=== PATIENT | female | born 1950 | race Caucasian/White ===

== ENCOUNTER → 2017-05-07 | Outpatient (CLI) | payer MEDICARE ==
[~2017-05-07] MED LIST: ALIG4CAP PO; COLA100C5 PO; DIFI200T PO; HYOS125TA SL; RANI15TA PO; RANI300C PO; RISATAB3 PO; TRAM50TA2 PO; TYLE325T5 PO; VANC1SUS PO; ZOMI2.5T4 PO; [UNRECOGNIZED DRUG - CODE] PO
--- NOTE | 2017-05-07 15:16 | REP ---
Clinical: Pain. Technique: AP, lateral, bilateral oblique views of the left foot. Findings: Mild/moderate age-related degenerative changes primarily involving the midfoot heterogeneous sclerosis and joint space narrowing primarily at the tarsometatarsal level appreciated. Increase sclerosis is also identified at the first metatarsophalangeal joint. No acute fracture dislocation. No obvious/significant erosive changes or soft tissue swelling. Impression: Mild to moderate degenerative changes. Signed by Gustavo Lee MD 05/07/2017 03:07 P
== END ==
LOC: M ADAMS 14:50
PROVIDERS: ATTEND Physician Assistant
DX: M19.072 Primary osteoarthritis, left ankle and foot (principal)

== ENCOUNTER → 2017-05-08 | Outpatient (REF) | payer MEDICARE | LOC: M SFHCADAM 08:13 | PROVIDERS: ATTEND Physician Assistant | DX: D64.9 Anemia, unspecified (principal); Q44.6 Cystic disease of liver; Z13.220 Encounter for screening for lipoid disorders; Q61.3 Polycystic kidney, unspecified; Z53.9 Procedure and treatment not carried out, unspecified reason ==

== ENCOUNTER → 2018-02-14 | Outpatient (CLI) | payer MEDICARE | LOC: M WHC 08:20 | DX: Z12.31 Encounter for screening mammogram for malignant neoplasm of breast (principal); Z13.820 Encounter for screening for osteoporosis; M85.851 Other specified disorders of bone density and structure, right thigh; M85.852 Other specified disorders of bone density and structure, left thigh; M85.88 Other specified disorders of bone density and structure, other site | CPT/HCPCS: 77067 ==

== ENCOUNTER → 2018-05-08 | Outpatient (REF) | payer MEDICARE ==
[2018-05-08 19:42] LABS: HEMATOCRIT 37.6 % (36.0-47.0); HEMOGLOBIN 12.6 g/dl (12.0-15.5); MEAN CORPUSCULAR HEMOGLOBIN 31.6 pg (27.0-33.0); MEAN CORPUSCULAR HGB CONC 33.5 g/dl (32.0-36.5); MEAN CORPUSCULAR VOLUME 94.2 fl (80.0-96.0); PLATELET COUNT, AUTOMATED 162 10^3/uL (150-450); RED BLOOD COUNT 3.99 10^6/uL (4.00-5.40); RED CELL DISTRIBUTION WIDTH 12.8 % (11.5-14.5); WHITE BLOOD COUNT 5.4 10^3/uL (4.0-10.0)
[2018-05-08 19:46] LABS: ALBUMIN 4.1 GM/DL (3.2-5.2); ALBUMIN/GLOBULIN RATIO 1.37 (1.00-1.93); ALKALINE PHOSPHATASE 85 U/L (45-117); ALT/SGPT 29 U/L (12-78); ANION GAP 7 MEQ/L (8-16); AST/SGOT 23 U/L (7-37); BILIRUBIN,TOTAL 0.4 MG/DL (0.2-1.0); BLOOD UREA NITROGEN 23 MG/DL (7-18); CALCIUM LEVEL 9.6 MG/DL (8.8-10.2); CARBON DIOXIDE LEVEL 26 MEQ/L (21-32); CHLORIDE LEVEL 109 MEQ/L (98-107); CREATININE FOR GFR 1.22 MG/DL (0.55-1.30); GLOMERULAR FILTRATION RATE 46.5 (>45); GLUCOSE, FASTING 113 MG/DL (70-100); POTASSIUM SERUM 5.2 MEQ/L (3.5-5.1); SODIUM LEVEL 142 MEQ/L (136-145); TOTAL PROTEIN 7.1 GM/DL (6.4-8.2)
== END ==
LOC: M SFHCADAM 16:41
DX: Q44.6 Cystic disease of liver (principal)
CPT/HCPCS: 80053

== ENCOUNTER → 2019-05-29 | Outpatient (REF) | payer MEDICARE ==
[~2019-05-29] MED LIST changes: +HYOS0.1256 SL; -HYOS125TA SL; +[UNRECOGNIZED DRUG - CODE] PO; -[UNRECOGNIZED DRUG - CODE] PO
[2019-05-29 19:52] LABS: HEMATOCRIT 38.6 % (36.0-47.0); HEMOGLOBIN 12.7 g/dl (12.0-15.5); MEAN CORPUSCULAR HEMOGLOBIN 32.5 pg (27.0-33.0); MEAN CORPUSCULAR HGB CONC 32.9 g/dl (32.0-36.5); MEAN CORPUSCULAR VOLUME 98.7 fl (80.0-96.0); PLATELET COUNT, AUTOMATED 184 10^3/uL (150-450); RED BLOOD COUNT 3.91 10^6/uL (4.00-5.40); WHITE BLOOD COUNT 7.8 10^3/uL (4.0-10.0)
[2019-05-29 20:04] LABS: ALBUMIN 4.1 GM/DL (3.2-5.2); BILIRUBIN,TOTAL 0.4 MG/DL (0.2-1.0); CALCIUM LEVEL 9.2 MG/DL (8.8-10.2); CREATININE FOR GFR 1.29 MG/DL (0.55-1.30); GLOMERULAR FILTRATION RATE 43.5 (>39); POTASSIUM SERUM 4.5 MEQ/L (3.5-5.1); TOTAL PROTEIN 7.7 GM/DL (6.4-8.2)
== END ==
LOC: M SFHCADAM 15:33
PROVIDERS: ATTEND Physician Assistant
DX: Q44.6 Cystic disease of liver (principal); Q61.3 Polycystic kidney, unspecified

== ENCOUNTER → 2020-10-07 | Outpatient (REF) | payer MEDICARE | LOC: M SFHCADAM 15:53 | PROVIDERS: ATTEND Physician Assistant | DX: K21.9 Gastro-esophageal reflux disease without esophagitis (principal); Q61.3 Polycystic kidney, unspecified; Q44.6 Cystic disease of liver; Z13.220 Encounter for screening for lipoid disorders ==

== ENCOUNTER → 2021-11-14 | Outpatient (REF) | payer MEDICARE ==
[2021-11-14 12:45] LABS: HEMATOCRIT 38.5 % (36.0-47.0); HEMOGLOBIN 12.7 g/dl (12.0-15.5); MEAN CORPUSCULAR HEMOGLOBIN 32.2 pg (27.0-33.0); MEAN CORPUSCULAR VOLUME 97.5 fl (80.0-96.0); PLATELET COUNT, AUTOMATED 155 10^3/uL (150-450); RED BLOOD COUNT 3.95 10^6/uL (4.00-5.40); WHITE BLOOD COUNT 4.9 10^3/uL (4.0-10.0)
[2021-11-14 13:23] LABS: CREATININE FOR GFR 1.58 MG/DL (0.55-1.30)
[2021-11-14 13:24] LABS: ALBUMIN 4.1 GM/DL (3.2-5.2); BILIRUBIN,TOTAL 0.5 MG/DL (0.2-1.0); CALCIUM LEVEL 9.2 MG/DL (8.8-10.2); FREE T4 0.94 NG/DL (0.76-1.46); GLOMERULAR FILTRATION RATE 34.2 (>39); POTASSIUM SERUM 5.7 MEQ/L (3.5-5.1); THYROID STIMULATING HORMONE 4.39 uIU/ML (0.358-3.740)
== END ==
LOC: M SFHCADAM 08:45
PROVIDERS: ATTEND Physician Assistant
DX: Q44.6 Cystic disease of liver (principal); Q61.3 Polycystic kidney, unspecified; K21.9 Gastro-esophageal reflux disease without esophagitis; R79.89 Other specified abnormal findings of blood chemistry; Z13.820 Encounter for screening for osteoporosis; Z13.220 Encounter for screening for lipoid disorders; Z79.899 Other long term (current) drug therapy

== ENCOUNTER → 2021-12-05 | Outpatient (REF) | payer MEDICARE ==
[2021-12-05 16:54] LABS: CALCIUM LEVEL 9.1 MG/DL (8.8-10.2); CREATININE FOR GFR 1.53 MG/DL (0.55-1.30); GLOMERULAR FILTRATION RATE 35.5 (>39); POTASSIUM SERUM 4.7 MEQ/L (3.5-5.1)
== END ==
LOC: M SFHCADAM 13:27
PROVIDERS: ATTEND Physician Assistant
DX: R74.8 Abnormal levels of other serum enzymes (principal)

== ENCOUNTER → 2021-12-25 | Outpatient (CLI) | payer MEDICARE | LOC: M WHC 13:59 | PROVIDERS: ATTEND Physician Assistant | DX: N17.9 Acute kidney failure, unspecified (principal); Q61.3 Polycystic kidney, unspecified ==

== ENCOUNTER 2022-01-01 05:10 | Inpatient (IN) | payer MEDICARE ==
[~2022-01-01] VITALS: Ht 157.5 cm; Wt 63.2 kg
[2022-01-01 05:53] LABS: HEMATOCRIT 37.9 % (36.0-47.0); HEMOGLOBIN 12.4 g/dl (12.0-15.5); MEAN CORPUSCULAR HEMOGLOBIN 30.7 pg (27.0-33.0); MEAN CORPUSCULAR HGB CONC 32.7 g/dl (32.0-36.5); MEAN CORPUSCULAR VOLUME 93.8 fl (80.0-96.0); PLATELET COUNT, AUTOMATED 200 10^3/uL (150-450); RED BLOOD COUNT 4.04 10^6/uL (4.00-5.40); WHITE BLOOD COUNT 7.4 10^3/uL (4.0-10.0)
[2022-01-01 06:22] LABS: ABG HCO3 24.8 MEQ/L (22.0-26.0); ABG O2 SATURATION 95.1 % (95.0-99.0); ABG PARTIAL PRESSURE CO2 32.9 mmHg (35.0-45.0); ABG PARTIAL PRESSURE O2 72.7 mmHg (75.0-100.0); ABG STANDARD HCO3 26.2 MEQ/L (22.0-26.0); ABG TOTAL CO2 25.8 MEQ/L (23.0-31.0); ABG pH (ARTERIAL) 7.495 UNITS (7.350-7.450)
[2022-01-01 06:23] LABS: EOSINOPHILS 1 % (0-3); LYMPHOCYTES 15 % (16-44); MONOCYTES 8 % (0-5); NEUTROPHILS 72 % (28-66)
[2022-01-01 06:24] LABS: PLATELET ESTIMATE NORMAL (NORMAL)
[2022-01-01 06:27] LABS: BILIRUBIN,DIRECT 0.2 MG/DL (0.0-0.2); BILIRUBIN,TOTAL 0.8 MG/DL (0.2-1.0); TOTAL PROTEIN 7.1 GM/DL (6.4-8.2)
[2022-01-01] MEDS ORDERED: COMBIVENT RESPIMAT 100-20MCG INHALER 4GM INH STA (06:52)
[2022-01-01] MEDS ORDERED: methylPREDNISolone 125MG 2ML VIAL IV ONE (06:55)
[2022-01-01] MEDS ORDERED: ONDANSETRON 4MG/2ML VIAL IV ONE (06:55)
[2022-01-01] MEDS ORDERED: NS 1,000 ML IV ONE (06:55)
[2022-01-01] MEDS ORDERED: KETOROLAC 30 MG/ML 1ML VIAL IV ONE (06:55)
[2022-01-01 07:33] LABS: CALCIUM LEVEL 9.4 MG/DL (8.8-10.2); CREATININE FOR GFR 1.39 MG/DL (0.55-1.30); GLOMERULAR FILTRATION RATE 39.7 (>39); POTASSIUM SERUM 4.7 MEQ/L (3.5-5.1)
[2022-01-01] MEDS ORDERED: ISOVUE-370 76% 100ML VIAL As Ordered ONE (07:36)
[2022-01-01] MEDS ORDERED: FAMO40TA3 PO (08:43)
[2022-01-01] MEDS ORDERED: ALBU8.5H INH (08:43)
[2022-01-01] MEDS ORDERED: HOME MED LIST COMPLETE! XX SCH (08:45)
[2022-01-01] MEDS ORDERED: CALCIUM CARBONATE 500 MG CHEW U/D PO PRN (09:45)
[2022-01-01] MEDS ORDERED: ACETAMINOPHEN TAB 650MG DOSE (2X325MG) PO PRN (09:45)
[2022-01-01] MEDS: PANTOPRAZOLE 40MG TAB (PROTONIX) PO SCH (11:55)
[2022-01-01 12:22] VITALS: BP 142/77
[2022-01-01] MEDS ORDERED: KETOROLAC 30 MG/ML 1ML VIAL IV SCH (13:00)
[2022-01-01] MEDS: ONDANSETRON 4MG/2ML VIAL IV SCH ×2 (13:44→18:01)
[2022-01-01 14:00] VITALS: BP 146/80
[2022-01-01] MEDS: ALBUTEROL SULFATE 2.5 MG/0.5 ML INH NEB SOLN NEB SCH ×2 (14:42→19:51)
[2022-01-01] MEDS ORDERED: methylPREDNISolone SUSP 40MG/ML 1ML VIAL (DEPO MEDROL) IS ONE (18:00)
[2022-01-01] MEDS ORDERED: methylPREDNISolone 40MG 1ML VIAL IV ONE (18:00)
[2022-01-01 18:56] LABS: MB/CK RELATIVE INDEX 1.17 (< OR =4)
[2022-01-01 20:04] VITALS: BP 122/69
[2022-01-01] MEDS: FAMOTIDINE 20 MG TAB PO SCH (20:43)
[2022-01-02] MEDS: ONDANSETRON 4MG/2ML VIAL IV SCH ×2 (00:52→05:43)
[2022-01-02] MEDS ORDERED: FLUTICASONE PROP 0.05% NASAL SPRAY 16 GM (FLONASE) NARES PRN (04:20)
[2022-01-02] MEDS: guaiFENesin ER 600 MG TAB PO PRN ×2 (04:40→14:11)
[2022-01-02] MEDS: BENZONATATE 100MG CAPSULE PO PRN ×3 (04:40→23:09)
[2022-01-02] MEDS: ALBUTEROL SULFATE 2.5 MG/0.5 ML INH NEB SOLN NEB SCH ×4 (04:40→19:11)
[2022-01-02 05:51] LABS: HEMATOCRIT 33.9 % (36.0-47.0); HEMOGLOBIN 11.2 g/dl (12.0-15.5); MEAN CORPUSCULAR HEMOGLOBIN 31.1 pg (27.0-33.0); MEAN CORPUSCULAR VOLUME 94.2 fl (80.0-96.0); PLATELET COUNT, AUTOMATED 186 10^3/uL (150-450); WHITE BLOOD COUNT 8.1 10^3/uL (4.0-10.0)
[2022-01-02 06:00] VITALS: BP 114/63
[2022-01-02 06:09] LABS: CALCIUM LEVEL 9.3 MG/DL (8.8-10.2); CREATININE FOR GFR 1.4 MG/DL (0.55-1.30); GLOMERULAR FILTRATION RATE 39.4 (>39); POTASSIUM SERUM 4.7 MEQ/L (3.5-5.1)
[2022-01-02 06:48] LABS: LYMPHOCYTES 5 % (16-44); MONOCYTES 5 % (0-5); NEUTROPHILS 90 % (28-66); PLATELET ESTIMATE NORMAL (NORMAL)
[2022-01-02] MEDS ORDERED: ENOXAPARIN 40MG/0.4ML SYRINGE (J1650 PER 10MG) SC SCH (09:00)
[2022-01-02] MEDS: predniSONE 20 MG TAB PO SCH (09:14)
[2022-01-02] MEDS: PANTOPRAZOLE 40MG TAB (PROTONIX) PO SCH (09:14)
[2022-01-02] MEDS ORDERED: cefTRIAXone SOD 1 GM in D5W MINI-BAG PLUS 50 ML IV SCH (10:10)
[2022-01-02] MEDS: DOXYCYCLINE HYCLATE 100 MG in D5W MINI-BAG PLUS 100 ML IV SCH ×2 (11:35→23:09)
[2022-01-02] MEDS: LevoFLOXacin IV 750 MG in IV 1 EA IV SCH (12:36)
[2022-01-02] MEDS: FAMOTIDINE 20 MG TAB PO SCH (20:58)
[2022-01-03] MEDS: ALBUTEROL SULFATE 2.5 MG/0.5 ML INH NEB SOLN NEB SCH ×4 (01:16→19:52)
[2022-01-03 05:55] VITALS: BP 140/77
[2022-01-03 05:57] LABS: BASO % 0.3 % (0.0-1.0); HEMATOCRIT 33.3 % (36.0-47.0); HEMOGLOBIN 11.1 g/dl (12.0-15.5); LYMPH # 0.5 10^3/uL (1.5-5.0); LYMPH % 4.5 % (24.0-44.0); MEAN CORPUSCULAR HEMOGLOBIN 31.3 pg (27.0-33.0); MEAN CORPUSCULAR HGB CONC 33.3 g/dl (32.0-36.5); MEAN CORPUSCULAR VOLUME 93.8 fl (80.0-96.0); MONO # 0.7 10^3/uL (0.0-0.8); MONO % 6.5 % (2.0-8.0); PLATELET COUNT, AUTOMATED 177 10^3/uL (150-450); RED BLOOD COUNT 3.55 10^6/uL (4.00-5.40); WHITE BLOOD COUNT 11.5 10^3/uL (4.0-10.0)
[2022-01-03] MEDS: guaiFENesin ER 600 MG TAB PO PRN (06:21)
[2022-01-03 06:29] LABS: CREATININE FOR GFR 1.31 MG/DL (0.55-1.30); GLOMERULAR FILTRATION RATE 42.5 (>39); POTASSIUM SERUM 4.3 MEQ/L (3.5-5.1)
[2022-01-03] MEDS: HEPARIN SOD (PORCINE) 5000UNITS/ML 1ML VIAL/SYRINGE SQ SCH ×2 (08:55→20:01)
[2022-01-03] MEDS: LACTOBACILLUS ACIDOPHILUS CAP (BACID) PO SCH (08:55)
[2022-01-03] MEDS: predniSONE 20 MG TAB PO SCH (08:55)
[2022-01-03] MEDS: PANTOPRAZOLE 40MG TAB (PROTONIX) PO SCH (08:56)
[2022-01-03 14:00] VITALS: BP 142/76
[2022-01-03] MEDS: FAMOTIDINE 20 MG TAB PO SCH (20:02)
[2022-01-03 20:17] VITALS: BP 135/73
[2022-01-04] MEDS: ALBUTEROL SULFATE 2.5 MG/0.5 ML INH NEB SOLN NEB SCH ×4 (01:07→19:24)
[2022-01-04] MEDS: BENZONATATE 100MG CAPSULE PO PRN (03:44)
[2022-01-04] MEDS: guaiFENesin ER 600 MG TAB PO PRN (03:44)
[2022-01-04 05:31] VITALS: BP 140/84
[2022-01-04 06:12] LABS: BASO % 0.3 % (0.0-1.0); HEMATOCRIT 33.4 % (36.0-47.0); HEMOGLOBIN 11.1 g/dl (12.0-15.5); LYMPH # 0.5 10^3/uL (1.5-5.0); LYMPH % 5.3 % (24.0-44.0); MEAN CORPUSCULAR HEMOGLOBIN 31.2 pg (27.0-33.0); MEAN CORPUSCULAR HGB CONC 33.2 g/dl (32.0-36.5); MEAN CORPUSCULAR VOLUME 93.8 fl (80.0-96.0); MONO # 0.6 10^3/uL (0.0-0.8); MONO % 5.9 % (2.0-8.0); NEUTROPHILS # 8.5 10^3/uL (1.5-8.5); NEUTROPHILS % 84.5 % (36.0-66.0); PLATELET COUNT, AUTOMATED 172 10^3/uL (150-450); RED BLOOD COUNT 3.56 10^6/uL (4.00-5.40)
[2022-01-04 06:33] LABS: CALCIUM LEVEL 8.8 MG/DL (8.8-10.2); CREATININE FOR GFR 1.25 MG/DL (0.55-1.30); GLOMERULAR FILTRATION RATE 44.8 (>39)
[2022-01-04] MEDS: predniSONE 20 MG TAB PO SCH (08:44)
[2022-01-04] MEDS: PANTOPRAZOLE 40MG TAB (PROTONIX) PO SCH (08:44)
[2022-01-04] MEDS: HEPARIN SOD (PORCINE) 5000UNITS/ML 1ML VIAL/SYRINGE SQ SCH ×3 (08:44→21:00)
[2022-01-04] MEDS: LACTOBACILLUS ACIDOPHILUS CAP (BACID) PO SCH (08:46)
[2022-01-04] MEDS: LevoFLOXacin IV 750 MG in IV 1 EA IV SCH (13:00)
[2022-01-04 14:00] VITALS: BP 128/75
[2022-01-04 14:32] VITALS: O2SAT 93
[2022-01-04] MEDS ORDERED: SODIUM CHLORIDE NASAL 0.65% SPRAY BTL (OCEAN) PRN (18:40)
[2022-01-04] MEDS: FAMOTIDINE 20 MG TAB PO SCH (21:41)
[2022-01-04 22:00] VITALS: BP 130/77
[2022-01-05] MEDS: ALBUTEROL SULFATE 2.5 MG/0.5 ML INH NEB SOLN NEB SCH ×4 (02:07→19:47)
[2022-01-05 05:44] VITALS: BP 135/74
[2022-01-05 05:56] LABS: BASO % 0.2 % (0.0-1.0); HEMATOCRIT 36.1 % (36.0-47.0); HEMOGLOBIN 11.8 g/dl (12.0-15.5); LYMPH # 0.7 10^3/uL (1.5-5.0); LYMPH % 7.6 % (24.0-44.0); MEAN CORPUSCULAR HEMOGLOBIN 30.9 pg (27.0-33.0); MEAN CORPUSCULAR HGB CONC 32.7 g/dl (32.0-36.5); MEAN CORPUSCULAR VOLUME 94.5 fl (80.0-96.0); MONO # 0.5 10^3/uL (0.0-0.8); MONO % 5.7 % (2.0-8.0); NEUTROPHILS # 7.6 10^3/uL (1.5-8.5); PLATELET COUNT, AUTOMATED 181 10^3/uL (150-450); RED BLOOD COUNT 3.82 10^6/uL (4.00-5.40); WHITE BLOOD COUNT 9.3 10^3/uL (4.0-10.0)
[2022-01-05 06:24] LABS: CALCIUM LEVEL 8.9 MG/DL (8.8-10.2); CREATININE FOR GFR 1.26 MG/DL (0.55-1.30); GLOMERULAR FILTRATION RATE 44.4 (>39); POTASSIUM SERUM 3.8 MEQ/L (3.5-5.1)
[2022-01-05 07:07] VITALS: O2SAT 91
[2022-01-05] MEDS ORDERED: MOM 30ML SUSPENSION UDC PO PRN (08:35)
[2022-01-05] MEDS: HEPARIN SOD (PORCINE) 5000UNITS/ML 1ML VIAL/SYRINGE SQ SCH ×2 (08:56→19:31)
[2022-01-05] MEDS: guaiFENesin ER 600 MG TAB PO PRN ×2 (08:58→20:58)
[2022-01-05] MEDS: LACTOBACILLUS ACIDOPHILUS CAP (BACID) PO SCH (08:58)
[2022-01-05] MEDS: predniSONE 20 MG TAB PO SCH (08:58)
[2022-01-05] MEDS: PANTOPRAZOLE 40MG TAB (PROTONIX) PO SCH (08:58)
[2022-01-05] MEDS: SENNA 8.6 MG TAB (SENOKOT) PO PRN (08:58)
[2022-01-05 14:00] VITALS: BP 129/75
[2022-01-05 19:48] VITALS: O2SAT 93
[2022-01-05] MEDS: FAMOTIDINE 20 MG TAB PO SCH (20:58)
[2022-01-05] MEDS: BENZONATATE 100MG CAPSULE PO PRN (20:58)
[2022-01-05 22:00] VITALS: BP 124/75
[2022-01-06 01:47] VITALS: O2SAT 93
[2022-01-06] MEDS: ALBUTEROL SULFATE 2.5 MG/0.5 ML INH NEB SOLN NEB SCH ×3 (01:47→12:48)
[2022-01-06] MEDS: SENNA 8.6 MG TAB (SENOKOT) PO PRN (05:48)
[2022-01-06 06:00] VITALS: BP 144/85
[2022-01-06] MEDS ORDERED: LevoFLOXacin 750 MG TABLET PO SCH (06:00)
[2022-01-06 06:09] LABS: HEMATOCRIT 36.2 % (36.0-47.0); HEMOGLOBIN 11.6 g/dl (12.0-15.5); MEAN CORPUSCULAR VOLUME 96.8 fl (80.0-96.0); PLATELET COUNT, AUTOMATED 195 10^3/uL (150-450); RED BLOOD COUNT 3.74 10^6/uL (4.00-5.40); WHITE BLOOD COUNT 9.3 10^3/uL (4.0-10.0)
[2022-01-06 06:31] LABS: CREATININE FOR GFR 1.29 MG/DL (0.55-1.30); GLOMERULAR FILTRATION RATE 43.2 (>39)
[2022-01-06 06:39] LABS: LYMPHOCYTES 11 % (16-44); METAMYELOCYTES 1 % (0-0); MONOCYTES 3 % (0-5); NEUTROPHILS 81 % (28-66); PLASMA CELL 1 % (0-0)
[2022-01-06 06:43] LABS: PLATELET ESTIMATE NORMAL (NORMAL); TEAR DROP CELLS 1+
[2022-01-06] MEDS ORDERED: ONDANSETRON 4MG ORAL DISINTEGRATING TAB PO PRN (07:45)
[2022-01-06] MEDS: LACTOBACILLUS ACIDOPHILUS CAP (BACID) PO SCH (08:04)
[2022-01-06] MEDS: predniSONE 20 MG TAB PO SCH (08:04)
[2022-01-06] MEDS: PANTOPRAZOLE 40MG TAB (PROTONIX) PO SCH (08:05)
[2022-01-06] MEDS: HEPARIN SOD (PORCINE) 5000UNITS/ML 1ML VIAL/SYRINGE SQ SCH ×2 (08:05→08:08)
[2022-01-06] MEDS ORDERED: BENZ-18 PO (12:52)
[2022-01-06] MEDS ORDERED: LEVO750T13 PO (12:52)
[2022-01-06] MEDS ORDERED: RISATAB3 PO (12:52)
[2022-01-06] MEDS ORDERED: PRED10TA2 PO (12:52)
[2022-01-06 14:00] VITALS: BP 114/81
== END 2022-01-06 15:08 | disposition home or self-care (01) | DRG 178 ==
LOC: EDBD 05:10 → M ED 05:10 → M ED INP 09:42 → ENRESERV 11:35 → M MSPAV 12:26
PROVIDERS: ADMIT Internal Medicine Nephrology; ATTEND Internal Medicine
DX: J10.08 Influenza due to other identified influenza virus with other specified pneumonia (principal); J15.8 Pneumonia due to other specified bacteria; Q61.3 Polycystic kidney, unspecified; N17.9 Acute kidney failure, unspecified; Q44.6 Cystic disease of liver; G43.909 Migraine, unspecified, not intractable, without status migrainosus; K21.9 Gastro-esophageal reflux disease without esophagitis; R09.02 Hypoxemia; A49.9 Bacterial infection, unspecified; N18.30 Chronic kidney disease, stage 3 unspecified; E28.2 Polycystic ovarian syndrome; Z79.899 Other long term (current) drug therapy; Z88.0 Allergy status to penicillin; Z91.013 Allergy to seafood; Z87.891 Personal history of nicotine dependence

== ENCOUNTER → 2022-02-09 | Outpatient (CLI) | payer MEDICARE ==
[~2022-02-09] MED LIST changes: +ALBU8.5H INH; +BENZ-18 PO; +FAMO40TA3 PO; +LEVO750T13 PO; +PRED10TA2 PO
== END ==
LOC: M WHC 11:02
PROVIDERS: ATTEND Family Medicine
DX: Z12.31 Encounter for screening mammogram for malignant neoplasm of breast (principal); Z13.820 Encounter for screening for osteoporosis; Z80.42 Family history of malignant neoplasm of prostate; Z80.0 Family history of malignant neoplasm of digestive organs; M85.88 Other specified disorders of bone density and structure, other site

== ENCOUNTER → 2022-03-22 | Outpatient (REF) | payer MEDICARE ==
[2022-03-22 10:32] LABS: BASO % 0.7 % (0.0-1.0); EOS # 0.1 10^3/uL (0.0-0.5); EOS % 1.9 % (0.0-3.0); HEMATOCRIT 40.7 % (36.0-47.0); HEMOGLOBIN 12.8 g/dl (12.0-15.5); LYMPH # 1.1 10^3/uL (1.5-5.0); LYMPH % 18.7 % (24.0-44.0); MEAN CORPUSCULAR HEMOGLOBIN 30.6 pg (27.0-33.0); MEAN CORPUSCULAR HGB CONC 31.4 g/dl (32.0-36.5); MEAN CORPUSCULAR VOLUME 97.4 fl (80.0-96.0); MONO # 0.6 10^3/uL (0.0-0.8); NEUTROPHILS % 68.5 % (36.0-66.0); PLATELET COUNT, AUTOMATED 165 10^3/uL (150-450); RED BLOOD COUNT 4.18 10^6/uL (4.00-5.40); WHITE BLOOD COUNT 5.8 10^3/uL (4.0-10.0)
[2022-03-22 11:33] LABS: ALBUMIN 4.1 GM/DL (3.2-5.2); BILIRUBIN,TOTAL 0.5 MG/DL (0.2-1.0); CREATININE FOR GFR 1.52 MG/DL (0.55-1.30); FREE T4 0.89 NG/DL (0.76-1.46); GLOMERULAR FILTRATION RATE 35.7 (>39); MAGNESIUM LEVEL 2.1 MG/DL (1.8-2.4); POTASSIUM SERUM 4.8 MEQ/L (3.5-5.1); THYROID STIMULATING HORMONE 4.9 uIU/ML (0.358-3.740); TOTAL PROTEIN 6.9 GM/DL (6.4-8.2)
== END ==
LOC: M SFHCADAM 08:03
PROVIDERS: ATTEND Physician Assistant
DX: G51.31 Clonic hemifacial spasm, right (principal); Z79.899 Other long term (current) drug therapy

== ENCOUNTER → 2022-03-22 | Outpatient (CLI) | payer MEDICARE | LOC: M ADAMS 08:45 | PROVIDERS: ATTEND Physician Assistant | DX: J18.9 Pneumonia, unspecified organism (principal) ==

== ENCOUNTER → 2022-04-18 | Outpatient (CLI) | payer MEDICARE ==
[~2022-04-18] MED LIST changes: +LEVO1TAB40 PO; -LEVO750T13 PO; +PROHANCE 279.3MG/ML 5ML VIAL As Ordered ONE
== END ==
LOC: M RAD 08:53
PROVIDERS: ATTEND Physician Assistant
DX: G51.31 Clonic hemifacial spasm, right (principal)
CPT/HCPCS: 70553; A9576

== ENCOUNTER → 2022-07-04 | Outpatient (CLI) | payer MEDICARE ==
[~2022-07-04] MED LIST changes: +ISOVUE-370 76% 100ML VIAL As Ordered ONE; -PROHANCE 279.3MG/ML 5ML VIAL As Ordered ONE
== END ==
LOC: M RAD 16:13
PROVIDERS: ATTEND Otolaryngology
DX: J38.3 Other diseases of vocal cords (principal)
CPT/HCPCS: 70491; Q9967

== ENCOUNTER 2022-07-24 09:01 | Outpatient (RCR) | payer MEDICARE ==
[~2022-07-24 09:01] MED LIST changes: -ISOVUE-370 76% 100ML VIAL As Ordered ONE
== END 2022-07-25 ==
LOC: M ST 09:01
PROVIDERS: ATTEND Otolaryngology
DX: J38.3 Other diseases of vocal cords (principal)

== ENCOUNTER 2022-08-23 07:58 | Outpatient (RCR) | payer MEDICARE | END 2022-08-25 | LOC: M ST 07:58 | PROVIDERS: ATTEND Otolaryngology | DX: J38.3 Other diseases of vocal cords (principal); R49.0 Dysphonia ==

== ENCOUNTER 2022-09-20 14:00 | Outpatient (RCR) | payer MEDICARE | END 2022-09-25 | LOC: M ST 14:00 | PROVIDERS: ATTEND Otolaryngology | DX: J38.3 Other diseases of vocal cords (principal) ==

== ENCOUNTER 2022-10-18 08:17 | Outpatient (RCR) | payer MEDICARE | END 2022-10-23 | LOC: M ST 08:17 | PROVIDERS: ATTEND Otolaryngology | DX: J38.3 Other diseases of vocal cords (principal) ==

== ENCOUNTER → 2022-11-23 | Outpatient (RCR) | payer MEDICARE | END | disposition still patient (30) | LOC: M ST 10-25 08:28 | PROVIDERS: ATTEND Otolaryngology | DX: J38.3 Other diseases of vocal cords (principal) ==

== ENCOUNTER → 2023-03-01 | Outpatient (REF) | payer MEDICARE | LOC: M SFHCADAM 15:56 | PROVIDERS: ATTEND Physician Assistant | DX: N18.32 Chronic kidney disease, stage 3b (principal); G43.009 Migraine without aura, not intractable, without status migrainosus; K21.9 Gastro-esophageal reflux disease without esophagitis; Q44.6 Cystic disease of liver; Z13.220 Encounter for screening for lipoid disorders ==

== ENCOUNTER → 2023-04-18 | Outpatient (CLI) | payer MEDICARE | LOC: M WHC 08:30 | PROVIDERS: ATTEND Physician Assistant | DX: Z12.31 Encounter for screening mammogram for malignant neoplasm of breast (principal) ==

== ENCOUNTER → 2024-03-03 | Outpatient (REF) | payer MEDICARE | LOC: M SFHCADAM 08:50 | PROVIDERS: ATTEND Physician Assistant | DX: G51.31 Clonic hemifacial spasm, right (principal); G89.29 Other chronic pain; N18.32 Chronic kidney disease, stage 3b; Q44.6 Cystic disease of liver; Q61.3 Polycystic kidney, unspecified; Z13.220 Encounter for screening for lipoid disorders ==

== ENCOUNTER → 2024-04-03 | Outpatient (CLI) | payer MEDICARE | LOC: M RAD 08:24 | PROVIDERS: ATTEND Physician Assistant | DX: Q44.6 Cystic disease of liver (principal); N28.1 Cyst of kidney, acquired; Z90.49 Acquired absence of other specified parts of digestive tract ==

== ENCOUNTER → 2024-04-21 | Outpatient (REF) | payer MEDICARE ==
[2024-04-21 14:23] LABS: CREATININE, URINE 77.1 MG/DL; MAU/CREAT RATIO 16.8 MCG/MG (0.0-30.0)
== END ==
LOC: M SFHCADAM 07:40
PROVIDERS: ATTEND Physician Assistant
DX: N18.32 Chronic kidney disease, stage 3b (principal)

== ENCOUNTER → 2024-08-11 | Outpatient (CLI) | payer MEDICARE | LOC: M RAD 08:58 | PROVIDERS: ATTEND Internal Medicine Nephrology | DX: Q61.2 Polycystic kidney, adult type (principal); N18.32 Chronic kidney disease, stage 3b; K57.30 Diverticulosis of large intestine without perforation or abscess without bleeding ==

== ENCOUNTER → 2025-03-17 | Outpatient (REF) | payer MEDICARE ==
[~2025-03-17] MED LIST changes: -ALIG4CAP PO; +ALIG4CAP3 PO
== END ==
LOC: M SFHCADAM 08:28
PROVIDERS: ATTEND Physician Assistant
DX: Z53.9 Procedure and treatment not carried out, unspecified reason (principal)

== ENCOUNTER → 2025-04-12 | Outpatient (CLI) | payer MEDICARE | LOC: M WHC 07:26 | PROVIDERS: ATTEND Physician Assistant | DX: Z12.31 Encounter for screening mammogram for malignant neoplasm of breast (principal); Z13.820 Encounter for screening for osteoporosis; M85.89 Other specified disorders of bone density and structure, multiple sites; R92.333 Mammographic heterogeneous density, bilateral breasts ==